=== PATIENT | female | born 1955 | race Hispanic/Latino ===

== ENCOUNTER 2022-03-21 14:47 | Outpatient (CLI) | payer MEDICARE, MEDICAID | END 2022-03-21 14:48 | disposition home or self-care (01) | LOC: CSHMAMMO 14:47 | PROVIDERS: ATTEND Family Medicine | DX: Z12.31 Encounter for screening mammogram for malignant neoplasm of breast (principal) | CPT/HCPCS: 77063; 77067 ==

== ENCOUNTER 2023-03-25 08:58 | Outpatient (CLI) | payer MEDICARE, MEDICAID | END 2023-03-25 08:59 | disposition home or self-care (01) | LOC: CSHMAMMO 08:58 | PROVIDERS: ATTEND Family Medicine | DX: Z12.31 Encounter for screening mammogram for malignant neoplasm of breast (principal) | CPT/HCPCS: 77063; 77067 ==

== ENCOUNTER 2024-03-16 13:45 | Outpatient (CLI) | payer MEDICARE, MEDICAID | END 2024-03-16 13:46 | disposition home or self-care (01) | LOC: CSHRAD 13:45 | PROVIDERS: ATTEND Family Medicine | DX: M25.512 Pain in left shoulder (principal); M19.012 Primary osteoarthritis, left shoulder ==

== ENCOUNTER 2024-10-27 10:04 | Outpatient (CLI) | payer MEDICARE, MEDICAID | END 2024-10-27 10:05 | disposition home or self-care (01) | LOC: CSHULT 10:04 | PROVIDERS: ATTEND Family Medicine | DX: R09.89 Other specified symptoms and signs involving the circulatory and respiratory systems (principal) | CPT/HCPCS: 93880 ==

== ENCOUNTER 2025-06-02 10:13 | Outpatient (CLI) | payer MEDICARE, MEDICAID | END 2025-06-02 10:14 | disposition home or self-care (01) | LOC: CSHMAMMO 10:13 | PROVIDERS: ATTEND Nurse Practitioner Family | DX: Z12.31 Encounter for screening mammogram for malignant neoplasm of breast (principal) | CPT/HCPCS: 77063; 77067 ==